=== PATIENT | male | born 2000 | race Caucasian/White ===

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

== ENCOUNTER 2019-12-17 11:59 | Outpatient (CLI) | payer OTHER ==
[2019-12-17 14:03] LABS: HIV ANTIBODY 1&2 RAPID NON-REACTIVE (Neg)
[2019-12-18 07:46] LABS: RPR Non Reactive (Non Reactive)
== END 2019-12-17 23:59 | disposition home or self-care (01) ==
LOC: LAB 11:59
PROVIDERS: ATTEND Family Medicine
DX: N47.5 Adhesions of prepuce and glans penis (principal)
CPT/HCPCS: 36415; 86592; 86703

== ENCOUNTER 2021-02-17 09:23 | Day surgery (SDC) | payer OTHER, BC ==
[~2021-02-17] VITALS: Ht 182.9 cm; Wt 77.1 kg
[2021-02-17] MEDS ORDERED: fentaNYL/PF 50MCG/1 ML 2ML syringe ONE (09:29)
[2021-02-17] MEDS ORDERED: MIDAZolam 1 MG/ML 5ML VIAL ONE (09:29)
[2021-02-17 09:33] VITALS: BP 112/68
[2021-02-17] MEDS ORDERED: NO HOME MEDS (09:43)
[2021-02-17 10:28] VITALS: BP 97/40
[2021-02-17 10:38] VITALS: BP 93/53
[2021-02-17 10:48] VITALS: BP 90/38
[2021-02-17 10:58] VITALS: BP 88/44
[2021-02-17 11:08] VITALS: BP 88/55
== END 2021-02-17 11:28 | disposition home or self-care (01) ==
LOC: GI LAB 09:23
PROVIDERS: ATTEND Internal Medicine Gastroenterology
DX: K92.1 Melena (principal); K62.5 Hemorrhage of anus and rectum; K64.8 Other hemorrhoids; F17.290 Nicotine dependence, other tobacco product, uncomplicated
CPT/HCPCS: 45378; 99152; J2250; J3010; J7040; 99153; A4620